=== PATIENT | male | born 1995 | race Caucasian/White ===

== ENCOUNTER 2020-12-03 10:12 | Day surgery (SDC) | payer BC ==
[2020-12-01 13:59] VITALS: BMI 21.5
[~2020-12-03 10:12] MED LIST: LACTATED RINGERS 1,000 ML IV SCH
[2020-12-03 10:48] VITALS: RESP 16
[2020-12-03] MEDS ORDERED: LIDOCAINE 1% (10MG/ML) FOR IV START INTRADERMA ONE (10:49)
[2020-12-03] MEDS ORDERED: ONDANSETRON 4 MG/2 ML VIAL IVP ONE (10:59)
[2020-12-03] MEDS ORDERED: DEXAMETHASONE SOD PHOSPHATE 4 MG/ML 1 ML VIAL IV ONE (10:59)
[2020-12-03] MEDS ORDERED: MIDAZOLAM 2 MG/2 ML VIAL IVP ONE (11:19)
[2020-12-03] MEDS ORDERED: LIDOCAINE 1% INJ 10MG/ML (20 ML MDV) ONE (12:04)
[2020-12-03] MEDS ORDERED: DEXAMETHASONE SOD PHOSPHATE 4 MG/ML 1 ML VIAL ONE (12:04)
[2020-12-03] MEDS ORDERED: SUCCINYLCHOLINE CHLORIDE 100 MG/5 ML SYR IV ONE (12:04)
[2020-12-03] MEDS ORDERED: KETAMINE 10 MG/ML 20 ML VIAL ONE (12:04)
[2020-12-03] MEDS ORDERED: GLYCOPYRROLATE 0.2 MG/ML 2 ML VIAL ONE (12:04)
[2020-12-03] MEDS ORDERED: ROPIVACAINE 5 MG/ML 30 ML VIAL ONE (12:04)
[2020-12-03] MEDS ORDERED: MIDAZOLAM 2 MG/2 ML VIAL ONE (12:04)
[2020-12-03] MEDS ORDERED: ROCURONIUM 10 MG/ML (5 ML VIAL) IV ONE (12:04)
[2020-12-03] MEDS ORDERED: fentaNYL (PF) 50 MCG/ML 2 ML AMP ONE (12:04)
[2020-12-03] MEDS ORDERED: PROPOFOL 10 MG/ML 20 ML VIAL IV ONE (12:04)
[2020-12-03] MEDS ORDERED: NEOSTIGMINE 1 MG/ML 10 ML VIAL ONE (12:04)
[2020-12-03] MEDS ORDERED: LACTATED RINGERS 1,000 ML IV ONE ×2 (13:11)
--- NOTE | 2020-12-03 13:13 | P.OP ---
Preoperative Diagnosis: Displaced right lateral malleolar ankle fracture Procedure(s) Performed: Open reduction with internal fixation right lateral malleolar fracture Implants: 1 Arthrex precontoured lateral malleolar plate with associated 3.5 locking screws and 3.0 cancellous screws Anesthesia: JAZLYN Surgeon: Donnell Leon Estimated Blood Loss (ml): 5 Pathology: none sent Condition: stable Disposition: PACU Indications for Procedure: Displaced right lateral malleolar fracture Description of Procedure: Prior to the patient being brought to the operating room anesthesia administered a nerve block on the right lower extremity, utilizing ultrasonic guidance and mild sedation. The patient was brought into the operating room and placed on the table supine position. Timeout was taken to confirm correct patient identifiers, correct procedure, and correct site of surgery. When the room was in agreement the patient was then placed under general anesthesia. A well- padded tourniquet was placed on the right thigh. A wedge was placed underneath the right hip to internally rotate the right leg and then the right leg was prepped and draped in usual manner. The leg was exsanguinated and the tourniquet inflated to 250 mmHg. Attention was directed over the lateral malleolus where a linear incision was made directly over the fracture. It was deepened down to the subcutaneous tissue being careful to identify, avoid, and retract any neurovascular structures and cauterize any bleeding vessels. Dissection was then continued down to level of the fracture. The periosteum was elevated along the length of the fracture. The fracture fragments were then distracted and any interposing tissue or hematoma were removed. The area was then thoroughly irrigated with antibiotic saline. Bone reduction forceps were used to rotate and reduce the fracture back into correct alignment. Fluoroscopy was used to check to make sure that the reduction was anatomic. The 3.5 mm cortical screw was then inserted from an anterior to posterior direction, perpendicular to the fracture line. The screw was tightened until it was compression noted. Then an Arthrex lateral malleolar precontoured plate was positioned over the lateral malleolus. Fluoroscopy was used to adjust the alignment and then once that was correct temporary fixation was applied to the plate. 3.5 locking screws were placed in the proximal holes of the plate. 3.0 cancellous screws were then inserted in the distal holes. All drill holes were made under direct fluoroscopic visualization so that the lateral gutter of the ankle joint was not penetrated. The temporary fixation was removed and those holes in the plate were also filled with appropriate size screws. Final fluoroscopic imaging showed near anatomic alignment of the fracture both in AP and lateral views. The ankle was placed under stress while performing live fluoroscopy and there was no evidence of any instability. The area was irrigated with antibiotic saline. The deep tissue was closed with 0 Vicryl. Subcutaneous closure was done with 4-0 Monocryl. And skin closure done with stainless steel pastora. An Arthrex jumpstart dressing was applied over the lateral incision and then a dry dressing applied. The tourniquet was released and capillary refill return to all digits on the right foot Anesthesia was reversed and the patient was taken recovery with vital signs stable.
--- NOTE | 2020-12-03 13:14 | XR ---
Fluoroscopy History: ORIF RT ANKLE Fluoroscopy was utilized for ORIF of the right ankle.
[2020-12-03 13:16] VITALS: TEMP 97.9
[2020-12-03] MEDS ORDERED: KETOROLAC 15 MG/ML 1 ML VIAL IVP ONE (13:30)
[2020-12-03 14:23] VITALS: BP 137/84; PULSE 68
--- NOTE | 2020-12-04 10:03 | P.ANPRN ---
Procedure Note - Anesthesia - Nerve Block Performed Right Popliteal Single Time Out Performed: Yes Date of Procedure: 12/03/20 Procedure Start Time: 11:18 Procedure Stop Time: :29 Location of Patient: PreOp Indication: Acute Post-Operative Pain, Requested by Surgeon Preparation: Sterile Prep Position: Left Lateral Needle Types: Pajunk Needle Gauge: 21 Ultrasound used to visualize needle placement: Yes Ultrasound used to observe medication spread: Yes Blood Aspirated: No Pain Paresthesia on Injection Noted: No Resistance on Injection: Normal Image Stored and Saved: Yes Events: Uneventful and Well Tolerated (ropio .5% 20cc plus dexamethasone 4mg)
== END 2020-12-03 14:39 | disposition home or self-care (01) ==
LOC: OR 10:12
PROVIDERS: ATTEND Podiatrist
DX: S82.61XA Displaced fracture of lateral malleolus of right fibula, initial encounter for closed fracture (principal); F17.210 Nicotine dependence, cigarettes, uncomplicated; Z98.890 Other specified postprocedural states; W17.89XA Other fall from one level to another, initial encounter; W18.09XA Striking against other object with subsequent fall, initial encounter; X50.1XXA Overexertion from prolonged static or awkward postures, initial encounter; Z83.3 Family history of diabetes mellitus; Z84.89 Family history of other specified conditions
CPT/HCPCS: 64445; 76942; 73610; 27792; C1713; J2250; J1100; J2710; J0690; J2405; J2001; J3010; J2795; J1885; J0330; J2704